=== PATIENT | female | born 1955 | race Caucasian/White ===

== ENCOUNTER 2021-02-04 05:31 | Day surgery (SDC) | payer OTHER ==
[2021-02-03 10:57] VITALS: BMI 40.6
[2021-02-04] MEDS ORDERED: MIDAZOLAM HCL 2 MG/2 ML SINGLE DOSE VIAL ONE (07:14)
[2021-02-04] MEDS ORDERED: SUCCINYLCHOLINE CHLORIDE 200 MG/10 ML SYRINGE ONE (07:14)
[2021-02-04] MEDS ORDERED: PROPOFOL 20 ML ONE (07:14)
[2021-02-04] MEDS ORDERED: LIDOCAINE HCL 1%, 10 MG/ML (20ML VIAL) ONE (07:19)
[2021-02-04] MEDS ORDERED: HEPARIN NA (PORCINE) 5,000 UNITS/ML 1ML VIAL ONE (07:19)
[2021-02-04] MEDS ORDERED: ceFAZolin SODIUM 1 GM VIAL ONE (07:53)
[2021-02-04] MEDS ORDERED: IOHEXOL 300 MG/ML INFUS..BTL IJ ONE (08:06)
[2021-02-04] MEDS ORDERED: LIDOCAINE HCL 1%, 10 MG/ML (20ML VIAL) INF ONE (08:06)
[2021-02-04] MEDS ORDERED: oxyCODONE HCL 5 MG TABLET PO PRN (08:10)
[2021-02-04] MEDS ORDERED: ONDANSETRON 4 MG/2 ML VIAL IVPUSH PRN (08:10)
[2021-02-04] MEDS ORDERED: LACTATED RINGERS SOLUTION 1,000 ML IV SCH (08:15)
[2021-02-04] MEDS ORDERED: DEXAMETHASONE SOD PHOSPHATE 4 MG/1 ML VIAL ONE (09:03)
[2021-02-04] MEDS ORDERED: CLOPIDOGREL BISULFATE 75 MG TABLET (FP) PO ONE ×2 (09:33→11:20)
[2021-02-04] MEDS ORDERED: ONDANSETRON 4 MG/2 ML VIAL ONE (09:37)
[2021-02-04] MEDS ORDERED: ONDANSETRON 4 MG/2 ML VIAL IVPUSH ONE (09:41)
[2021-02-04] MEDS ORDERED: FAMOTIDINE 20 MG/50 ML IVPB 20 MG/50 ML MG IVPB ONE (10:50)
[2021-02-04] MEDS ORDERED: FAMOTIDINE 20 MG PREMIXED IVPB IVPB ONE (10:55)
[2021-02-04 12:54] VITALS: TEMP 97.8
[2021-02-04 15:58] VITALS: BP 122/66; PULSE 85
== END 2021-02-04 14:15 | disposition home or self-care (01) ==
LOC: JASU-SURG 05:31
PROVIDERS: ATTEND Surgery Vascular Surgery
PROC: 047U3ZZ Dilation of Left Peroneal Artery, Percutaneous Approach (ICD-10-PCS; 2021-02-04)
PROC: 047L3DZ Dilation of Left Femoral Artery with Intraluminal Device, Percutaneous Approach (ICD-10-PCS; principal; 2021-02-04 07:30)
DX: I70.212 Atherosclerosis of native arteries of extremities with intermittent claudication, left leg (principal); I70.92 Chronic total occlusion of artery of the extremities; I10 Essential (primary) hypertension; E11.9 Type 2 diabetes mellitus without complications
CPT/HCPCS: 37227; 37229; C1877; 76000-TC-FY; 82962; 86850; 86900; 86901; 94760; J1644

== ENCOUNTER 2021-07-01 04:33 | Day surgery (SDC) | payer OTHER ==
[2021-06-29 13:23] VITALS: BMI 39.6
[2021-07-01 08:58] LABS: BASO % 0.8 % (0-2.0); EOS % 1.6 % (0-4.5); HEMATOCRIT 38.9 % (32.4-45.2); HEMOGLOBIN 13.2 GM/dL (10.7-15.3); LYMPH % 38.3 % (8-40); MCH 31.2 pg (25.7-33.7); MEAN CELL VOLUME 91.8 fl (80-96); MEAN PLT VOLUME 7.4 fl (7.5-11.1); MONO % 5.4 % (3.8-10.2); NEUT % 53.9 % (42.8-82.8); PLATELET COUNT 229 10^3/uL (134-434); RBC 4.24 M/mm3 (3.60-5.2); RDW 14.9 % (11.6-15.6); WHITE BLOOD COUNT 9.3 K/mm3 (4.0-10.0)
[2021-07-01 09:05] LABS: INR 0.86 (0.83-1.09); PROTHROMBIN TIME (PATIENT) 10.6 SEC (9.7-13.0)
[2021-07-01 09:08] LABS: ACTIVATED PTT 32.2 SECONDS (25.2-36.5)
[2021-07-01] MEDS ORDERED: LIDOCAINE HCL 1%, 10 MG/ML (20ML VIAL) ONE (11:42)
[2021-07-01] MEDS ORDERED: HEPARIN NA (PORCINE) 5,000 UNITS/ML 1ML VIAL ONE (11:42)
[2021-07-01] MEDS ORDERED: MIDAZOLAM HCL 2 MG/2 ML SINGLE DOSE VIAL ONE (11:48)
[2021-07-01] MEDS ORDERED: PROPOFOL 20 ML ONE (11:48)
[2021-07-01] MEDS ORDERED: ceFAZolin 2 GRAM PREMIX BAG IVPB ONE (12:22)
[2021-07-01] MEDS ORDERED: ceFAZolin SODIUM 1 GM VIAL ONE (12:22)
[2021-07-01] MEDS ORDERED: LIDOCAINE HCL 1%, 10 MG/ML (20ML VIAL) NR ONE ×3 (12:25→12:35)
[2021-07-01] MEDS ORDERED: OXYTOCIN 10 UNITS/ML VIAL ONE (12:51)
[2021-07-01] MEDS ORDERED: PROMETHAZINE HCL 25 MG/1 ML VIAL IVPB PRN (13:41)
[2021-07-01] MEDS ORDERED: LACTATED RINGERS SOLUTION 1,000 ML IV SCH (13:45)
[2021-07-01 16:19] VITALS: BP 145/71; PULSE 90; TEMP 98.6
== END 2021-07-01 16:30 | disposition home or self-care (01) ==
LOC: JASU-SURG 04:33
PROVIDERS: ATTEND Surgery Vascular Surgery
PROC: 047L3Z1 Dilation of Left Femoral Artery using Drug-Coated Balloon, Percutaneous Approach (ICD-10-PCS; principal; 2021-07-01 10:30)
DX: I70.212 Atherosclerosis of native arteries of extremities with intermittent claudication, left leg (principal); E11.9 Type 2 diabetes mellitus without complications; I10 Essential (primary) hypertension
CPT/HCPCS: 37225; C1885; 36415; 76000-TC-FY; 82962; 85025; 85610; 85730; 93005; 93010; 94760; J1644

== ENCOUNTER 2021-09-02 04:55 | Day surgery (SDC) | payer OTHER ==
[2021-09-01 12:39] VITALS: BMI 38.5
[2021-09-02] MEDS ORDERED: HEPARIN NA (PORCINE) 5,000 UNITS/ML 1ML VIAL ONE ×2 (07:15→07:52)
[2021-09-02] MEDS ORDERED: LIDOCAINE HCL 1%, 10 MG/ML (20ML VIAL) ONE (07:15)
[2021-09-02] MEDS ORDERED: LIDOCAINE HCL 1%, 10 MG/ML (20ML VIAL) NR ONE ×3 (07:37→08:40)
[2021-09-02] MEDS ORDERED: LIDOCAINE HCL/PF 2% SDV 5ML VIAL ONE (07:52)
[2021-09-02] MEDS ORDERED: DEXAMETHASONE SOD PHOSPHATE 4 MG/1 ML VIAL ONE (07:52)
[2021-09-02] MEDS ORDERED: ceFAZolin SODIUM 1 GM VIAL ONE (07:52)
[2021-09-02] MEDS ORDERED: PROPOFOL 20 ML ONE ×3 (07:52→08:27)
[2021-09-02] MEDS ORDERED: MIDAZOLAM HCL 2 MG/2 ML SINGLE DOSE VIAL ONE (07:53)
[2021-09-02] MEDS ORDERED: ceFAZolin SODIUM 1 GM VIAL IVPB ONE (08:18)
[2021-09-02] MEDS ORDERED: ONDANSETRON 4 MG/2 ML VIAL IVPUSH PRN (09:22)
[2021-09-02] MEDS ORDERED: ACETAMINOPHEN 325 MG TABLET (FP) PO PRN (09:22)
[2021-09-02] MEDS ORDERED: oxyCODONE HCL 5 MG TABLET PO PRN (09:22)
[2021-09-02] MEDS ORDERED: LACTATED RINGERS SOLUTION 1,000 ML IV SCH (09:30)
[2021-09-02] MEDS ORDERED: SCOPOLAMINE HYDROBROMIDE 1 PATCH PATCH.TD72 ONE (09:54)
[2021-09-02 12:03] VITALS: BP 144/78
[2021-09-02 12:14] VITALS: PULSE 78; TEMP 98
== END 2021-09-02 12:15 | disposition home or self-care (01) ==
LOC: JASU-SURG 04:55
PROVIDERS: ATTEND Surgery Vascular Surgery
PROC: 04CK3ZZ Extirpation of Matter from Right Femoral Artery, Percutaneous Approach (ICD-10-PCS; 2021-09-02)
PROC: 047K3D1 Dilation of Right Femoral Artery with Intraluminal Device, using Drug-Coated Balloon, Percutaneous Approach (ICD-10-PCS; principal; 2021-09-02 08:00)
DX: I70.211 Atherosclerosis of native arteries of extremities with intermittent claudication, right leg (principal); I10 Essential (primary) hypertension; E11.9 Type 2 diabetes mellitus without complications
CPT/HCPCS: 37227; C1877; C2623; 76000-TC-FY; 82962; 94760; J1644